=== PATIENT | female | born 1990 | race Caucasian/White ===

== ENCOUNTER → 2016-07-22 | Day surgery (SDC) | payer BC, SELFPAY ==
[~2016-07-22] MED LIST: Lactated Ringers 1,000 ML IV SCH; Lidocaine 4% Top Soln 5 ML LTA Syringe ONE; Lidocaine 4% Top Soln 5 ML LTA Syringe TOP ONE; Meperidine PF 25 MG/ML Syringe IV ONE; Meperidine PF 25 MG/ML Syringe ONE; Meperidine PF 50 MG/ML Syringe IV ONE; Midazolam 1 MG/ML 2 ML SDV IV ONE; Midazolam 1 MG/ML 2 ML SDV ONE
[2016-07-22 11:33] VITALS: BP 125/85
--- NOTE | 2016-07-23 07:22 | OR ---
DATE OF OPERATION: 07/22/2016 PREOPERATIVE DIAGNOSIS: EPIGASTRIC PAIN. POSTOPERATIVE DIAGNOSIS: HIATAL HERNIA WITH GASTROESOPHAGEAL REFLUX DISEASE. SURGEON: Chencho Angulo MD PROCEDURE: UPPER GI ENDOSCOPY WITH CLOTEST. ANESTHESIA: Cetacaine spray and IV sedation. INDICATIONS: After the patient was made to swallow the gastroscope down, the patient's esophagus shows evidence of severe reflux, right up to upper esophagus there is a small sliding hiatal hernia with severe gastroesophageal reflux disease. I did not see any esophagitis, body of the stomach, antrum, pyloric channel, first and second part of duodenum were examined, they were free of any ulcer disease, any tumor mass, any polypoid lesion, any inflammatory process. A biopsy for CLOtest was taken. The gastroscope was retroverted and the fundus was normal and hiatal hernia was confirmed. After multiple photographs were taken gastroscope was gradually withdrawn. The patient tolerated the procedure well and left the operating room in satisfactory condition. CARMELA/JANELL /[id number]
== END ==
LOC: CC.SDS 09:02
PROVIDERS: ATTEND Family Medicine
DX: K21.9 Gastro-esophageal reflux disease without esophagitis (principal); K44.9 Diaphragmatic hernia without obstruction or gangrene; F41.9 Anxiety disorder, unspecified; M79.7 Fibromyalgia; E78.5 Hyperlipidemia, unspecified; D50.9 Iron deficiency anemia, unspecified; G43.909 Migraine, unspecified, not intractable, without status migrainosus; G47.33 Obstructive sleep apnea (adult) (pediatric); E04.1 Nontoxic single thyroid nodule; Z79.899 Other long term (current) drug therapy
CPT/HCPCS: 36415; 43235; 84703; 87081; A9270; J2175; J2250; J7120

== ENCOUNTER → 2016-08-26 | Day surgery (SDC) | payer BC ==
[~2016-08-26] MED LIST changes: +Bupivacaine 0.25% 10 ML SDV INJECT ONE; +Dexamethasone 4 MG/ML SDV IV ONE; -Lactated Ringers 1,000 ML IV SCH; +Lidocaine 2% 20 ML MDV INJECT ONE; -Lidocaine 4% Top Soln 5 ML LTA Syringe ONE; -Lidocaine 4% Top Soln 5 ML LTA Syringe TOP ONE; -Meperidine PF 25 MG/ML Syringe IV ONE; -Meperidine PF 25 MG/ML Syringe ONE; -Meperidine PF 50 MG/ML Syringe IV ONE; -Midazolam 1 MG/ML 2 ML SDV ONE; +Morphine 4 MG/ML Syringe IVPUSH PRN; +Ondansetron 4 MG/2 ML SDV IV ONE; +Ondansetron 4 MG/2 ML SDV IVPUSH PRN; +Rocuronium 50 MG/5 ML Vial IV ONE; +Succinylcholine 200 MG/10 ML MDV IV ONE; +ceFAZolin 1 GM Vial IVPUSH ONE; +fentaNYL 100 MCG/2 ML SDV IV ONE
[2016-08-26] MEDS: Lactated Ringers 1,000 ML IV SCH ×2 (11:01→17:37)
[2016-08-26] MEDS: Acetaminophen/HYDROcodone 325-5 MG Tab PO PRN (19:47)
[2016-08-27] MEDS: Acetaminophen/HYDROcodone 325-5 MG Tab PO PRN ×3 (00:25→08:29)
[2016-08-27 08:22] VITALS: BP 120/67
--- NOTE | 2016-08-27 09:12 | OR ---
DATE OF OPERATION: 08/26/2016 PREOPERATIVE DIAGNOSIS: GASTROESOPHAGEAL REFLUX DISEASE. POSTOPERATIVE DIAGNOSIS: GASTROESOPHAGEAL REFLUX DISEASE. SURGEON: Chencho Angulo MD PROCEDURE: LAPAROSCOPIC CARRILLO FUNDOPLICATION. ANESTHESIA: General. DESCRIPTION OF PROCEDURE: After the patient was anesthetized satisfactorily, the patient's abdomen was prepped with iodoform. The patient was given sterile drapes. A small skin incision was made in the midline. It was carried down through the skin, subcutaneous tissue, down through deep fascia and peritoneum. An 11 mm blunt trocar was introduced. CO2 gas was insufflated. Under direct camera vision, two 12 mm trocars were introduced in the right upper quadrant and two in the left upper quadrant. The patient was quite obese. The patient's left lobe of the liver was retracted to one side. Stomach was held in position, gastrohepatic ligament was divided with help of LigaSure and then dissection was done over on the left crux of the diaphragm. The patient did have a very small hiatal hernia which was reduced back into the peritoneal cavity. The esophagus was also dissected out and brought back into the peritoneal cavity. Similarly, the left crux of the diaphragm was also dissected out. Then the short gastric vessels were divided with help of ligature and fundus of the stomach was completely mobilized. In the process, there was some bleeding from the area of the splenic areas. Clips were applied to this area as well as Surgicel was applied and the bleeding was ultimately brought under control. Then fundus was wrapped around the lower end of the esophagus after a window was created connecting the right side with the left side. Then sutures were placed, zero Ethibond between esophagus and stomach. Three stitches were placed and these were ligated satisfactorily, this was done after a 56-Turkish Webber dilator was introduced into the stomach and light was visualized. Then copious irrigation was done and hemostasis was once again examined and was found to be satisfactory. The patient did not require any stitches within the hiatus, then the dilator was removed. Liver retractor was also removed. Then deep fascia was closed with zero Ethibond running sutures, skin was closed with shola. The patient was given sterile dressing. She tolerated the procedure well and left the operating room in satisfactory condition. CARMELA/JANELL /[id number]
== END ==
LOC: CC.SDS 10:21
PROVIDERS: ATTEND Surgery
DX: K21.9 Gastro-esophageal reflux disease without esophagitis (principal); F41.9 Anxiety disorder, unspecified; E78.5 Hyperlipidemia, unspecified; G47.33 Obstructive sleep apnea (adult) (pediatric); E04.1 Nontoxic single thyroid nodule; Z79.899 Other long term (current) drug therapy; D50.9 Iron deficiency anemia, unspecified; Z90.49 Acquired absence of other specified parts of digestive tract; Z72.0 Tobacco use; Z77.22 Contact with and (suspected) exposure to environmental tobacco smoke (acute) (chronic)
CPT/HCPCS: 36415; 43280; 84703; A9270; J0330; J0690; J1100; J2250; J2270; J2405; J3010; J7120

== ENCOUNTER 2016-09-07 16:30 | Emergency (ER) | payer BC ==
[~2016-09-07 16:30] MED LIST changes: -Bupivacaine 0.25% 10 ML SDV INJECT ONE; -Dexamethasone 4 MG/ML SDV IV ONE; +Doxycycline 100 MG Tab PO ONE; -Lidocaine 2% 20 ML MDV INJECT ONE; -Midazolam 1 MG/ML 2 ML SDV IV ONE; -Morphine 4 MG/ML Syringe IVPUSH PRN; -Ondansetron 4 MG/2 ML SDV IV ONE; -Ondansetron 4 MG/2 ML SDV IVPUSH PRN; -Rocuronium 50 MG/5 ML Vial IV ONE; -Succinylcholine 200 MG/10 ML MDV IV ONE; -ceFAZolin 1 GM Vial IVPUSH ONE; -fentaNYL 100 MCG/2 ML SDV IV ONE
[2016-09-07 16:36] VITALS: BP 153/92
[2016-09-07] MEDS ORDERED: Take Home: Doxycycline 100 MG Tab, 4 Tab Pack PO ONE (16:56)
--- NOTE | 2016-09-07 17:01 | EDM.PDOC ---
ED HPI GENERAL MEDICAL PROBLEM - General Chief Complaint: General Stated Complaint: "shola tearing incision" Time Seen by Provider: 09/07/16 16:55 History Limitations: Reports: No Limitations - History of Present Illness INITIAL COMMENTS - FREE TEXT/NARRATIVE: complains of draiange and redness from incision site on abdomen. 5 shola noted. significant redness noted at lower 2 staaples, and staple have pyulled through and wound is draining. Onset: Gradual Duration: Day(s): Location: Reports: Abdomen Severity: Mild Lower Abdomen Pain Score (Numeric/FACES): 5 - Related Data Allergies Allergy/AdvReac Type Severity Reaction Status Date / Time No Known Allergies Allergy Verified 09/07/16 16:36 Home Meds: Home Meds hydrOXYzine HCl [Atarax] 25 mg PO DAILY 02/14/16 [History] Acetaminophen/Diphenhydramine [Tylenol Pm Ex-Strength Caplet] 1 tab PO BEDTIME PRN 07/22/16 [History] Acetaminophen [Tylenol Extra Strength] 500 - 1,000 mg PO Q6H PRN 09/07/16 [ History] Past Medical History HEENT History: Reports: Other (See Below) Other HEENT History: WEARS GLASSES Cardiovascular History: Reports: High Cholesterol Respiratory History: Reports: Asthma, Sleep Apnea Gastrointestinal History: Reports: GERD, Hiatal Hernia Other Gastrointestinal History: DIARRHEA, Genitourinary History: Reports: UTI, Recurrent 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: Reports: Polycystic Ovaries, Other OB/BYN History: MISCARRIAGE Musculoskeletal History: Reports: Arthritis, Back Pain, Chronic, Fibromyalgia Other Musculoskeletal History: SCOLIOSIS Neurological History: Reports: Migraines Psychiatric History: Reports: Anxiety, Depression Endocrine/Metabolic History: Reports: Obesity/BMI 30+, Other (See Below) Other Endocrine/Metabolic History: THYROID CYSTS Hematologic History: Reports: Other (See Below) Other Hematologic History: VITAMIN D DEFIECIENCY - Past Surgical History HEENT Surgical History: Reports: Myringotomy w Tube(s) GI Surgical History: Reports: Cholecystectomy, Hernia Repair/Other, Mikel Fundoplication Social & Family History - Family History Family Medical History: Noncontributory - Tobacco Use Smoking Status *Q: Never Smoker Second Hand Smoke Exposure: No - Alcohol Use Days Per Week of Alcohol Use: 0 - Recreational Drug Use Recreational Drug Use: No ED ROS GENERAL - Review of Systems Review Of Systems: See Below Constitutional: Reports: No Symptoms HEENT: Reports: No Symptoms Respiratory: Reports: No Symptoms Cardiovascular: Reports: No Symptoms Endocrine: Reports: No Symptoms Musculoskeletal: Reports: No Symptoms Skin: Reports: Erythema, Wound Neurological: Reports: No Symptoms Psychiatric: Reports: No Symptoms Hematologic/Lymphatic: Reports: No Symptoms Immunologic: Reports: No Symptoms ED EXAM, GENERAL - Physical Exam Exam: See Below Exam Limited By: No Limitations General Appearance: Alert Ears: Normal External Exam Nose: Normal Inspection Throat/Mouth: Normal Inspection Neck: Normal Inspection Cardiovascular: Normal Peripheral Pulses GI/Abdominal: Normal Bowel Sounds, Soft, Tender Extremities: Normal Inspection Psychiatric: Normal Affect Skin Exam: Erythema, Increased Warmth Course - Vital Signs Last Recorded V/S: Last Vital Signs Temp 98.5 F 09/07/16 16:31 Pulse 102 H 09/07/16 16:31 Resp 18 09/07/16 16:31 BP 153/92 H 09/07/16 16:31 Pulse Ox 98 09/07/16 16:31 Departure - Departure Time of Disposition: 16:58 (botom 2 shola removed, barely haning on. cheryl place on doxycycline bid) Disposition: Home, Self-Care 01 Condition: Good Clinical Impression: Cellulitis - Discharge Information Forms: ED Department Discharge
== END 2016-09-07 17:06 | disposition home or self-care (01) ==
LOC: CC.ED 16:30
DX: L03.311 Cellulitis of abdominal wall (principal); E78.00 Pure hypercholesterolemia, unspecified; J45.909 Unspecified asthma, uncomplicated; K21.9 Gastro-esophageal reflux disease without esophagitis; F41.9 Anxiety disorder, unspecified; F32.9 Major depressive disorder, single episode, unspecified; E66.9 Obesity, unspecified; Z96.22 Myringotomy tube(s) status; Z90.49 Acquired absence of other specified parts of digestive tract
CPT/HCPCS: 99281; A9270

== ENCOUNTER 2017-06-16 17:20 | Emergency (ER) | payer SELFPAY ==
[2017-06-16] MEDS ORDERED: Ketorolac 10 MG Tab PO ONE (17:21)
[2017-06-16 17:38] VITALS: BP 153/94
[2017-06-16] MEDS ORDERED: Ketorolac 60 MG/2 ML SDV IM ONE (17:59)
--- NOTE | 2017-06-16 18:15 | EDM.PDOC ---
ED HPI GENERAL MEDICAL PROBLEM - General Chief Complaint: Lower Extremity Injury/Pain Stated Complaint: R) hip pain s/p fall Time Seen by Provider: 06/16/17 17:55 Source of Information: Reports: Patient History Limitations: Reports: No Limitations - History of Present Illness INITIAL COMMENTS - FREE TEXT/NARRATIVE: Bre is a 26 year old female with PMH of fibromyalgia, who presents to the ED with c/o right hip/buttock pain. She reports she fell on the ice this morning while taking her daughter to school. She reports she was on the steps, slipped, and fell backwards, landing on her right buttock. She reports that throughout the day her pain has worsened. She now notices a large bruise to the area. She reports she does have some intermittent numbness, tingling and a "burning sensation" down the back side of her right leg. She reports the n/t extends to her mid calf. She also reports some lower back pain. She denies any other injuries. Denies any LOC at time of injury. Reports throughout the day today she has tried alternating Tylenol, ibuprofen, ice, and heat, but the pain continues. She rates the pain a 9/10. Reports she is able to ambulate, but does have a limp to her RLE. Onset: Today Onset Date: 06/16/17 Onset Time: 08:15 Duration: Constant Location: Reports: Lower Extremity, Right Quality: Reports: Ache, Sharp Severity: Severe Improves with: Reports: Cold Therapy, Heat Therapy, Medication Worsens with: Reports: Movement Context: Reports: Activity Associated Symptoms: Reports: No Other Symptoms. 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 Right Hip Pain Score (Numeric/FACES): 9 Lower Back Pain Score (Numeric/FACES): 5 - Related Data Allergies Allergy/AdvReac Type Severity Reaction Status Date / Time No Known Allergies Allergy Verified 06/16/17 17:38 Home Meds: Home Meds hydrOXYzine HCl [Atarax] 25 mg PO DAILY 02/14/16 [History] Acetaminophen [Tylenol Extra Strength] 500 - 1,000 mg PO Q6H PRN 09/07/16 [ History] Ibuprofen 400 - 600 mg PO Q6H PRN 06/16/17 [History] Ketorolac Tromethamine 10 mg PO Q6H PRN #10 tablet 06/16/17 [Rx] Venlafaxine [Effexor] 25 mg PO DAILY 06/16/17 [History] Past Medical History HEENT History: Reports: Other (See Below) Other HEENT History: WEARS GLASSES Cardiovascular History: Reports: High Cholesterol Respiratory History: Reports: Asthma, Sleep Apnea Gastrointestinal History: Reports: GERD, Hiatal Hernia Other Gastrointestinal History: DIARRHEA, Genitourinary History: Reports: UTI, Recurrent 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: Reports: Polycystic Ovaries, Other OB/BYN History: MISCARRIAGE Musculoskeletal History: Reports: Arthritis, Back Pain, Chronic, Fibromyalgia Other Musculoskeletal History: SCOLIOSIS Neurological History: Reports: Migraines Psychiatric History: Reports: Anxiety, Depression Endocrine/Metabolic History: Reports: Obesity/BMI 30+, Other (See Below) Other Endocrine/Metabolic History: THYROID CYSTS Hematologic History: Reports: Other (See Below) Other Hematologic History: VITAMIN D DEFIECIENCY - Past Surgical History HEENT Surgical History: Reports: Myringotomy w Tube(s) GI Surgical History: Reports: Cholecystectomy, Hernia Repair/Other, Mikel Fundoplication Social & Family History - Family History Family Medical History: Noncontributory - Tobacco Use Smoking Status *Q: Never Smoker Second Hand Smoke Exposure: No - Alcohol Use Days Per Week of Alcohol Use: 0 - Recreational Drug Use Recreational Drug Use: No Review of Systems - Review of Systems Review Of Systems: ROS reveals no pertinent complaints other than HPI. ED EXAM, GENERAL - Physical Exam Exam: See Below Exam Limited By: No Limitations General Appearance: Alert, WD/WN, No Apparent Distress Peripheral Pulses: 2+: Posterior Tibial (L), Posterior Tibial (R), Dorsalis Pedis (L), Dorsalis Pedis (R) Back Exam: Normal Inspection, Full Range of Motion, NT Extremities: Normal Range of Motion, Normal Capillary Refill, Leg Pain, Limited Range of Motion (RLE), Other (large circular area of ecchymosis to right posterior buttock). No: Pedal Edema Neurological: Alert, Oriented, CN II-XII Intact, Normal Cognition, Normal Gait, Normal Reflexes, No Motor/Sensory Deficits Psychiatric: Normal Affect, Normal Mood Skin Exam: Ecchymosis (right buttock) Course - Vital Signs Last Recorded V/S: Last Vital Signs Temp 96.5 F 06/16/17 17:30 Pulse 102 H 06/16/17 17:30 Resp 20 06/16/17 17:30 BP 153/94 H 06/16/17 17:30 Pulse Ox 99 06/16/17 17:30 - Orders/Labs/Meds Orders: Active Orders 24 hr Category Date Time Status Hip Min 2V or 3V Rt [CR] Stat Exams 06/16/17 17:48 Ordered Lumbar Spine 2 or 3V [CR] Stat Exams 06/16/17 17:48 Ordered Meds: Medications Discontinued Medications Generic Name Dose Route Start Last Admin Trade Name Carroll PRN Reason Stop Dose Admin Ketorolac Tromethamine 60 mg 06/16/17 17:59 06/16/17 18:05 Toradol IM 06/16/17 18:00 60 mg ONETIME ONE Administration - Re-Assessments/Exams Free Text/Narrative Re-Assessment/Exam: 06/16/17 18:33 Xrays reviewed and discussed with patient. I do not see any obvious abnormalities. Departure - Departure Time of Disposition: 18:33 Disposition: Home, Self-Care 01 Condition: Good Clinical Impression: Contusion, buttock Qualifiers: Encounter type: initial encounter Qualified Code(s): S30.0XXA - Contusion of lower back and pelvis, initial encounter Contusion of hip, right Qualifiers: Encounter type: initial encounter Qualified Code(s): S70.01XA - Contusion of right hip, initial encounter - Discharge Information Instructions: Hip Pain Referrals: Constantino Betancourt MD [Primary Care Provider] - Forms: ED Department Discharge Additional Instructions: Toradol every 6 hours as needed for pain. #4 take home. #10 at [facility] Can alternate with Tylenol as needed Continue to ice affected area Follow up if symptoms worsen or do not improve - My Orders Last 24 Hours: My Active Orders 06/16/17 17:48 Hip Min 2V or 3V Rt [CR] Stat Lumbar Spine 2 or 3V [CR] Stat - Assessment/Plan Last 24 Hours: My Active Orders 06/16/17 17:48 Hip Min 2V or 3V Rt [CR] Stat Lumbar Spine 2 or 3V [CR] Stat
[2017-06-16] MEDS ORDERED: Take Home: Ketorolac 10 MG Tab, 4 Tab Pack PO ONE (18:35)
== END 2017-06-16 18:50 | disposition home or self-care (01) ==
LOC: CC.ED 17:20
DX: S70.01XA Contusion of right hip, initial encounter (principal); S30.0XXA Contusion of lower back and pelvis, initial encounter; E78.00 Pure hypercholesterolemia, unspecified; K21.9 Gastro-esophageal reflux disease without esophagitis; F41.9 Anxiety disorder, unspecified; F32.9 Major depressive disorder, single episode, unspecified; E66.9 Obesity, unspecified; Z79.899 Other long term (current) drug therapy; W00.9XXA Unspecified fall due to ice and snow, initial encounter
CPT/HCPCS: 72100; 96372; 99283; A9270-GY; J1885

== ENCOUNTER 2017-07-06 14:50 | Emergency (ER) | payer SELFPAY ==
[2017-07-06] MEDS ORDERED: Acetaminophen/HYDROcodone 325-5 MG Tab PO ONE (14:51)
[2017-07-06 14:56] VITALS: BP 153/94
--- NOTE | 2017-07-06 15:00 | EDM.PDOC ---
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 States does currently have her menses and is cramping severely. Relates that she has a history of ovarian cysts and questions if she has one now as the pain is very similar. 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 Has more pain with standing or lying, states the pain is better in a seated position. Denies pain with intercourse a week ago. No mucous or unusual discharge. No fevers. Does admit that she gets mildly constipated with her menstrual cycles but doesn' t usually have this type of pain. No burning with urination. Onset: Gradual Duration: Day(s): Location: Reports: Abdomen Quality: Reports: Sharp, Stabbing Severity: Mild Improves with: Reports: Rest Worsens with: Reports: Movement Associated Symptoms: Denies: Fever/Chills, Loss of Appetite, Nausea/Vomiting Pelvic Pain Score (Numeric/FACES): 6 - Related Data Allergies Allergy/AdvReac Type Severity Reaction Status Date / Time No Known Allergies Allergy Verified 07/06/17 14:56 Home Meds: Home Meds hydrOXYzine HCl [Atarax] 25 mg PO BEDTIME 02/14/16 [History] Acetaminophen [Tylenol Extra Strength] 500 - 1,000 mg PO Q6H PRN 09/07/16 [ History] Ibuprofen 400 - 600 mg PO Q6H PRN 06/16/17 [History] Venlafaxine [Effexor] 25 mg PO BEDTIME 06/16/17 [History] Past Medical History HEENT History: Reports: Other (See Below) Other HEENT History: WEARS GLASSES Cardiovascular History: Reports: High Cholesterol Respiratory History: Reports: Asthma, Sleep Apnea Gastrointestinal History: Reports: GERD, Hiatal Hernia Other Gastrointestinal History: DIARRHEA, Genitourinary History: Reports: UTI, Recurrent 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 MAKER History: Reports: Polycystic Ovaries, Other OB/BYN History: MISCARRIAGE Musculoskeletal History: Reports: Arthritis, Back Pain, Chronic, Fibromyalgia Other Musculoskeletal History: SCOLIOSIS Neurological History: Reports: Migraines Psychiatric History: Reports: Anxiety, Depression Endocrine/Metabolic History: Reports: Obesity/BMI 30+, Other (See Below) Other Endocrine/Metabolic History: THYROID CYSTS Hematologic History: Reports: Other (See Below) Other Hematologic History: VITAMIN D DEFIECIENCY - Past Surgical History HEENT Surgical History: Reports: Myringotomy w Tube(s) GI Surgical History: Reports: Cholecystectomy, Hernia Repair/Other, Mikel Fundoplication Social & Family History - Family History Family Medical History: Noncontributory - Tobacco Use Smoking Status *Q: Never Smoker Second Hand Smoke Exposure: No - Alcohol Use Days Per Week of Alcohol Use: 0 - Recreational Drug Use Recreational Drug Use: No ED ROS GENERAL - Review of Systems Review Of Systems: See Below Constitutional: Denies: Fever, Chills, Malaise, Weakness, Decreased Appetite HEENT: Reports: No Symptoms Respiratory: Reports: No Symptoms Cardiovascular: Reports: No Symptoms Endocrine: Reports: No Symptoms GI/Abdominal: Reports: Abdominal Pain, Constipation. Denies: Nausea, Vomiting : Reports: Other (current menstrual cycle) Musculoskeletal: Reports: No Symptoms Skin: Reports: No Symptoms Neurological: Reports: No Symptoms ED EXAM, GI/ABD - Physical Exam Exam: See Below Exam Limited By: No Limitations General Appearance: Alert, WD/WN, No Apparent Distress Ears: Normal External Exam, Normal TMs Nose: Normal Inspection, Normal Mucosa, No Blood Throat/Mouth: Normal Inspection, Normal Oropharynx Head: Normocephalic Neck: Normal Inspection, Supple, Non-Tender Respiratory/Chest: No Respiratory Distress, Lungs Clear, Normal Breath Sounds Cardiovascular: Regular Rate, Rhythm GI/Abdominal Exam: Normal Bowel Sounds, Soft, Tender Neurological: Alert, Oriented Skin Exam: Warm, Dry Course - Vital Signs Last Recorded V/S: Last Vital Signs Temp 97.9 F 07/06/17 14:53 Pulse 85 07/06/17 14:53 Resp 20 07/06/17 14:53 BP 153/94 H 07/06/17 14:53 Pulse Ox 97 07/06/17 14:53 - Orders/Labs/Meds Orders: Active Orders 24 hr Category Date Time Status UA W/MICROSCOPIC [URIN] Stat Lab 07/06/17 15:07 Ordered Labs: Laboratory Tests 07/06/17 07/06/17 07/06/17 Range/Units 15:07 15:10 15:10 WBC 10.4 H (5.0-10.0) 10^3/uL RBC 4.34 (4.00-5.50) 10^6/uL Hgb 11.5 L (12.0-16.0) g/dL Hct 35.7 L (37.0-47.0) % MCV 82.3 (82.0-94.0) fL MCH 26.5 L (27.0-32.0) pg MCHC 32.2 L (33.0-38.0) g/dL RDW Coeff of Tam 15.3 H (11.0-15.0) % Plt Count 258 (150-400) 10^3/uL Neut % (Auto) 62.8 (35-85) % Lymph % (Auto) 29.1 (10-55) % [place] % (Auto) 5.6 (0-16) % Eos % (Auto) 2.3 (0-5) % Baso % (Auto) 0.2 (0-3) % Neut # (Auto) 6.51 (1.80-7.00) 10^3/uL Lymph # (Auto) 3.01 (1.00-4.80) 10^3/uL [place] # (Auto) 0.58 (0.00-0.80) 10^3/uL Eos # (Auto) 0.24 (0.00-0.45) 10^3/uL Baso # (Auto) 0.02 10^3/uL Sodium 139 (136-145) mEq/L Potassium 4.1 (3.5-5.0) mEq/L Chloride 102 (98-106) mEq/L Carbon Dioxide 25 (21-32) mmol/L BUN 11 (7-18) mg/dL Creatinine 0.7 (0.6-1.0) mg/dL Est Cr Clr Drug Dosing 91.09 mL/min Estimated GFR (MDRD) > 60 (>=60) mL/min Glucose 96 (75-99) mg/dL Calcium 8.6 (8.4-10.1) mg/dL Total Bilirubin 0.3 (0.0-1.0) mg/dL AST 13 L (15-37) U/L ALT 19 (12-78) U/L Alkaline Phosphatase 85 (46-116) U/L C-Reactive Protein 2.7 H (0.2-0.8) mg/dL Total Protein 7.5 (6.4-8.2) g/dL Albumin 3.2 L (3.4-5.0) g/dL HCG, Qual Urine Color Light yellow (YELLOW) Urine Appearance Slightly cloudy (CLEAR) Urine pH 6.5 (4.5-8.0) Ur Specific [place] 1.020 (1.003-1.020) Urine Protein Negative (NEGATIVE) mg/dL Urine Glucose (UA) Negative (NEGATIVE) mg/dL Urine Ketones Negative (NEGATIVE) mg/dL Urine Occult Blood Large H (NEGATIVE) Urine Nitrite Negative (NEGATIVE) Urine Bilirubin Negative (NEGATIVE) Urine Urobilinogen 0.2 (0.2-1.0) EU/dL Ur Leukocyte Esterase Negative (NEGATIVE) Urine RBC 50-75 H (0-5) /HPF Urine WBC Not seen (0-5) /HPF Ur Epithelial Cells Moderate H (NOT SEEN) /HPF Urine Bacteria Occasional H (NOT SEEN) /HPF 07/06/17 Range/Units 15:10 WBC (5.0-10.0) 10^3/uL RBC (4.00-5.50) 10^6/uL Hgb (12.0-16.0) g/dL Hct (37.0-47.0) % MCV (82.0-94.0) fL MCH (27.0-32.0) pg MCHC (33.0-38.0) g/dL RDW Coeff of Tam (11.0-15.0) % Plt Count (150-400) 10^3/uL Neut % (Auto) (35-85) % Lymph % (Auto) (10-55) % [place] % (Auto) (0-16) % Eos % (Auto) (0-5) % Baso % (Auto) (0-3) % Neut # (Auto) (1.80-7.00) 10^3/uL Lymph # (Auto) (1.00-4.80) 10^3/uL [place] # (Auto) (0.00-0.80) 10^3/uL Eos # (Auto) (0.00-0.45) 10^3/uL Baso # (Auto) 10^3/uL Sodium (136-145) mEq/L Potassium (3.5-5.0) mEq/L Chloride (98-106) mEq/L Carbon Dioxide (21-32) mmol/L BUN (7-18) mg/dL Creatinine (0.6-1.0) mg/dL Est Cr Clr Drug Dosing mL/min Estimated GFR (MDRD) (>=60) mL/min Glucose (75-99) mg/dL Calcium (8.4-10.1) mg/dL Total Bilirubin (0.0-1.0) mg/dL AST (15-37) U/L ALT (12-78) U/L Alkaline Phosphatase (46-116) U/L C-Reactive Protein (0.2-0.8) mg/dL Total Protein (6.4-8.2) g/dL Albumin (3.4-5.0) g/dL HCG, Qual Negative Urine Color (YELLOW) Urine Appearance (CLEAR) Urine pH (4.5-8.0) Ur Specific [place] (1.003-1.020) Urine Protein (NEGATIVE) mg/dL Urine Glucose (UA) (NEGATIVE) mg/dL Urine Ketones (NEGATIVE) mg/dL Urine Occult Blood (NEGATIVE) Urine Nitrite (NEGATIVE) Urine Bilirubin (NEGATIVE) Urine Urobilinogen (0.2-1.0) EU/dL Ur Leukocyte Esterase (NEGATIVE) Urine RBC (0-5) /HPF Urine WBC (0-5) /HPF Ur Epithelial Cells (NOT SEEN) /HPF Urine Bacteria (NOT SEEN) /HPF Meds: Medications Discontinued Medications Generic Name Dose Route Start Last Admin Trade Name Freq PRN Reason Stop Dose Admin Hydrocodone Bitart/Acetaminophen 2 packet 07/06/17 15:42 Take Home: Acetaminophen/Hydrocod, 2 Tab Pack PO 07/06/17 15:43 ONETIME ONE Ketorolac Tromethamine 60 mg 07/06/17 15:29 07/06/17 15:35 Toradol IM 07/06/17 15:30 60 mg ONETIME ONE Administration - Re-Assessments/Exams Free Text/Narrative Re-Assessment/Exam: 07/06/17 15:45 Labs reviewed. Are stable. Will plan for pelvic ultrasound tomorrow. Departure - Departure Time of Disposition: 15:43 Disposition: Home, Self-Care 01 Condition: Good Clinical Impression: Pain in pelvis - Discharge Information Referrals: Constantino Betancourt MD [Primary Care Provider] - Forms: ED Department Discharge Additional Instructions: 1. Rest 2. Heating pad as needed 3. Pelvic ultrasound tomorrow~ they will call you with a time 4. [place]- 1-2 tabs for pain every 6 hours as needed 5. Follow up for any questions or concerns. - My Orders Last 24 Hours: My Active Orders 07/06/17 15:07 UA W/MICROSCOPIC [URIN] Stat - Assessment/Plan Last 24 Hours: My Active Orders 07/06/17 15:07 UA W/MICROSCOPIC [URIN] Stat
[2017-07-06] MEDS ORDERED: Ketorolac 60 MG/2 ML SDV IM ONE (15:29)
[2017-07-06 15:35] LABS: CHLORIDE,CL 102 mEq/L (98-106); SODIUM,NA 139 mEq/L (136-145)
[2017-07-06] MEDS ORDERED: Take Home: Acetaminophen/HYDROcodone 325-5 MG, 2 Tab Pack PO ONE (15:42)
== END 2017-07-06 15:48 | disposition home or self-care (01) ==
LOC: CC.ED 14:50
DX: R10.2 Pelvic and perineal pain (principal); E78.00 Pure hypercholesterolemia, unspecified
CPT/HCPCS: 36415; 80053; 81001; 84703; 85025; 86140; 96372; 99283; A9270; J1885